=== PATIENT | male | born 1995 | race Caucasian/White ===

== ENCOUNTER 2016-12-01 00:21 | Observation (INO) ==
[2016-12-01] MEDS ORDERED: *HR* LORazepam 2 MG/ML VIAL IM ONE (00:24)
[2016-12-01] MEDS ORDERED: Haloperidol Lactate 5 MG/ML VIAL IM ONE (00:24)
[2016-12-01] MEDS ORDERED: Haloperidol Lactate 5 MG/ML VIAL ONE (00:25)
[2016-12-01] MEDS ORDERED: *HR* LORazepam 2 MG/ML VIAL ONE (00:25)
--- NOTE | 2016-12-01 00:27 | Emergency Department Note ---
Disposition Clinical Impression: Altered mental status, Alcohol intoxication Disposition: Admitted As Inpatient Condition: Fair Time of Disposition: 02:04 General Adult HPI - General Chief complaint: ED Overdose Stated complaint: ETOH Time Seen by Provider: 12/01/16 00:24 Source: EMS, police Mode of arrival: EMS Limitations: altered mental status Nursing Notes Reviewed: Yes Vital Signs Reviewed: Yes - History of Present Illness HPI Narrative: History is extremely limited due the patient's altered mental status. Police report that they were called for a reported seizure at a local bar. Per bystanders, the patient reportedly used heroine and crack cocaine today. The police state that they found the patient banging his head against a wall. They stated that they tried to subdue him, but the patient was extremely combative and they used a taser twice to subdue him. He was brought in by EMS. He was extremely combative and aggressive towards the EMS crew. He does not provide any history. - Related Data Previous Rx's Medication Instructions Recorded Amoxicillin/Clavulanate [Augmentin] 875 mg PO BIDWM #20 tablet 07/30/15 Promethazine/Phenyleph/Codeine 120 ml PO Q6-8H PRN #120 syrup 07/30/15 [Promethazine Vc-Codeine Syrup] Amoxicillin [Amoxil] 500 mg PO TID #30 capsule 09/19/15 Loratadine [Claritin] 10 mg PO DAILY #30 tablet 09/19/15 Allergies Allergy/AdvReac Type Severity Reaction Status Date / Time No Known Allergies Allergy Verified 07/30/15 11:36 Limitations: ROS unobtainable due to patients medical condition Past Medical History - Past Medical History Source: unable to obtain Medical history: Reports: no medical history Surgical history: Reports: no surgical history Psychiatric history: Reports: depression - Social History Smoking Status: Current every day smoker Smokeless Tobacco Status: No Alcohol use: Reports: none Drug use: Reports: marijuana Physical Exam - General Limitations: altered mental status General appearance: appears intoxicated - Head Head exam: atraumatic, normocephalic - Eye Eye exam: Present: normal appearance, other (Dilated, reactive bilaterally without nystagmus.) - ENT ENT exam: normal exam - Neck Neck exam: Present: normal inspection, full ROM, trachea midline. Absent: tenderness - Chest Chest inspection: Present: other (Erythema to the right upper medial chest consistent with taser that was pressed to the chest in that area.) - Respiratory Respiratory exam: Present: normal lung sounds bilaterally. Absent: respiratory distress, stridor - Cardiovascular Cardiovascular exam: Present: normal rhythm, tachycardia - Abdominal Exam Abdominal exam: Present: soft, Non-Tender. Absent: distention, rebound - Extremities Exam Extremities exam: Present: normal inspection, full ROM - Back Exam Back exam: Present: normal inspection, full ROM. Absent: tenderness - Neurological Exam Neurological exam: Present: alert, CN II-XII intact - Psychiatric Psychiatric exam: Present: agitated - Skin Skin exam: Present: warm, dry, intact, normal color Course - Reevaluation(s) Reevaluation #1: Unfortunately, there was no improvement in the patient's agitation after IM Ativan and Haldol. Nursing staff was able to obtain an IV. I gave 50 mg of ketamine IV, after which the patient was somnolent and cooperative. Patient without any diminished respiratory drive or hypoxemia. Respiratory staff available if the patient does not continue to protect his airway. Time: 01:09 Reevaluation #2: No acute findings on CT of his head, C-spine, or chest x-ray other than possible aspiration pneumonitis of the right upper lobe. Patient is still quite somnolent. He is maintaining his airway. He is 99% on nasal cannula oxygen. Time: 02:03 Reevaluation #3: Accepted by Dr. Almanza. Time: 02:24 Vital Signs Temperature 0 F L 12/01/16 00:27 Pulse Rate 150 12/01/16 00:27 Respiratory Rate 20 12/01/16 00:27 Blood Pressure 135/100 12/01/16 00:27 O2 Sat by Pulse Oximetry 97 12/01/16 00:27 Temperature 0 F L 12/01/16 00:27 Pulse Rate 73 12/01/16 02:49 Respiratory Rate 14 12/01/16 02:49 Blood Pressure 93/57 12/01/16 02:49 O2 Sat by Pulse Oximetry 100 12/01/16 02:49 Oxygen Delivery Oxygen Delivery Nasal Cannula Medical Decision Making - Lab Data Result diagrams: 12/01/16 01:23 12/01/16 01:23 Lab Results 12/01/16 12/01/16 12/01/16 Range/Units 00:44 01:23 01:23 WBC 9.5 (4.3-11.1) K/mcL RBC 4.68 (4.19-5.50) M/mcL Hgb 14.2 (12.9-16.9) g/dL Hct 40.9 (37.5-50.1) % MCV 87.4 (83.0-100.0) fL MCH 30.3 (28.0-33.3) pg MCHC 34.7 (31.6-35.5) g/dL RDW 11.3 L (11.5-14.5) % Plt Count 259 (140-400) K/mcL MPV 9.2 L (9.4-12.4) fL Immature Gran % 0.3 (0-4) % Seg Neutrophils % 62.8 % Lymphocytes % 28.6 % Monocytes % 5.5 % Eosinophils % 2.3 % Basophils % 0.5 % Neutrophils # 5.9 (1.6-8.9) K/mcL Lymphocytes # 2.7 (0.6-4.6) K/mcL Monocytes # 0.5 (0.0-1.3) K/mcL Eosinophils # 0.2 (0.0-0.6) K/mcL Basophils # 0.1 (0.0-0.2) K/mcL Sodium 144 (136-145) mEq/L Potassium 3.7 (3.5-4.5) mEq/L Chloride 111 H (98-109) mEq/L Carbon Dioxide 22 (19-29) mEq/L BUN 4 L (8-26) mg/dL Creatinine 0.66 L (0.72-1.25) mg/dL Est GFR ( Amer) > 60 (> 60) Est GFR (Non-Af Amer) > 60 (> 60) BUN/Creatinine Ratio 6 (6-26) Glucose 114 H (70-99) mg/dL Calculated Osmolality 296 (280-300) Calcium 8.2 L (8.6-10.8) mg/dL Salicylates < 5.0 L (15-30) mg/dL Urine Opiates Screen Negative (Gonpls=157) ng/mL Acetaminophen < 1.0 L (10-30) mcg/mL Ur Barbiturates Screen Negative (Xebgyo=157) ng/mL Ur Phencyclidine Scrn Negative (Cutoff=25) ng/mL Ur Amphetamines Screen Negative (Sjfmif=3225) ng/mL U Benzodiazepines Scrn Negative (Zwbznq=499) ng/mL Urine Cocaine Screen Negative (Cutoff= 300) ng/mL U Marijuana (THC) Screen Negative (Cutoff = 50) ng/mL Ethyl Alcohol 290 H (0-10) mg/dL - EKG Data EKG #1 EKG attestation: Yes I reviewed and interpreted this EKG. EKG results narrative: Normal sinus rhythm at 95 with normal axis and intervals. No ST elevation or depression. No pathologic Q waves. No EKG available. This is a normal EKG. Critical Care Time Critical Care Time: Yes Total Critical Care Time: 40 Attestation: Critical care performed: Time is exclusive of separately billable procedures. Time includes: direct patient care, patient reassessment, coordination of patient care, interpretation of data (laboratory data, radiology data, and respiratory data), review of patient's medical records, medical consultation and documentation of patient care. Procedures included in critical care time: Procedures excluded from critical care time: Attestation Statement - Attestation Attestation: I, Orlando Giron MD, personally performed a history and physical exam of the patient and discussed their management with the resident. I reviewed the resident's note and agree with the documented findings, medical decision making , and plan of care. 21-year-old male brought to the emergency department by EMS for altered mental status. Patient was apparently are EMS report when they arrived he was outside and being held down and was banging his head on the concrete. Patient extremely confused and combative. He is yelling and uncooperative. Unable to obtain any history from patient. Patient had to be restrained and sedated. On examination patient is a well-developed well-nourished male in no acute distress. No obvious signs of trauma. Patient appears intoxicated. No scalp hematomas noted. Full range of motion of neck. No palpable bony step-off. Breath sounds equal bilaterally. Heart regular and tachycardic. Abdomen soft with normal bowel sounds. CT of the head and cervical spine was negative other than some right upper lobe infiltrate consistent with aspiration. Labs reviewed. The hospitalist, Dr. Almanza, was consulted and accepted the admission of the patient.
[2016-12-01] MEDS ORDERED: Ketamine *HR* 500 MG/10 ML MDV IV ONE (00:37)
[2016-12-01] MEDS ORDERED: 0.9 % Sodium Chloride 1,000 ML ONE (00:46)
[2016-12-01 01:18] LABS: Amphetamine Screen,Urine Negative ng/mL (Cutoff=1000); Barbiturate Screen,Urine Negative ng/mL (Cutoff=200); Benzodiazepines Screen,Urine Negative ng/mL (Cutoff=200); Cannabinoid Screen,Urine Negative ng/mL (Cutoff = 50); Cocaine Screen,Urine Negative ng/mL (Cutoff= 300); Opiate Screen,Urine Negative ng/mL (Cutoff=300); Phencyclidine Screen,Urine Negative ng/mL (Cutoff=25)
[2016-12-01 01:31] LABS: Basophils # 0.1 K/mcL (0.0-0.2); Basophils % 0.5 %; Eosinophils # 0.2 K/mcL (0.0-0.6); Eosinophils % 2.3 %; Hematocrit 40.9 % (37.5-50.1); Hemoglobin 14.2 g/dL (12.9-16.9); Immature Granulocytes % 0.3 % (0-4); Lymphocytes # 2.7 K/mcL (0.6-4.6); Lymphocytes % 28.6 %; Mean Corpuscular HGB Conc 34.7 g/dL (31.6-35.5); Mean Corpuscular Hemoglobin 30.3 pg (28.0-33.3); Mean Corpuscular Volume 87.4 fL (83.0-100.0); Mean Platelet Volume 9.2 fL (9.4-12.4); Monocytes # 0.5 K/mcL (0.0-1.3); Monocytes % 5.5 %; Neutrophils # 5.9 K/mcL (1.6-8.9); Platelet Count 259 K/mcL (140-400); Red Blood Count 4.68 M/mcL (4.19-5.50); Red Cell Distribution Width 11.3 % (11.5-14.5); Segmented Neutrophils % 62.8 %
[2016-12-01 01:45] LABS: BUN/Creatinine Ratio 6 (6-26); Calcium 8.2 mg/dL (8.6-10.8); Carbon Dioxide 22 mEq/L (19-29); Chloride 111 mEq/L (98-109); Ethanol 290 mg/dL (0-10); Glucose 114 mg/dL (70-99); Osmolality,Calculated 296 (280-300); Potassium 3.7 mEq/L (3.5-4.5); Sodium 144 mEq/L (136-145); eGFR For African Americans > 60 (> 60); eGFR For Non-African Americans > 60 (> 60)
[2016-12-01 01:50] LABS: Acetaminophen < 1.0 mcg/mL (10-30); Blood Urea Nitrogen 4 mg/dL (8-26); Salicylate < 5.0 mg/dL (15-30)
[2016-12-01] MEDS ORDERED: 0.9 % Sodium Chloride 1,000 ML IV ONE (01:50)
[2016-12-01] MEDS ORDERED: D5% in 0.45% NACL w KCl 20 MEQ/1,000 ML MLS IVC SCH (02:30)
[2016-12-01] MEDS ORDERED: Ondansetron 4 MG/2 ML VIAL IVP PRN ×2 (03:51→15:45)
[2016-12-01] MEDS ORDERED: Naloxone 0.4 MG/ML INJ IVP PRN ×2 (03:51→15:45)
[2016-12-01] MEDS ORDERED: Acetaminophen 325 MG TABLET PO PRN ×2 (03:51→15:45)
[2016-12-01] MEDS ORDERED: Acetaminophen 650 MG RECTAL SUPP RC PRN ×2 (03:51→15:45)
[2016-12-01] MEDS ORDERED: Haloperidol Lactate 5 MG/ML VIAL IVP PRN (04:05)
[2016-12-01] MEDS ORDERED: *HR* Promethazine 25 MG/ML VIAL IVP PRN ×2 (04:05→15:45)
[2016-12-01] MEDS ORDERED: *HR* LORazepam 2 MG/ML VIAL IVP PRN ×6 (04:05→15:45)
--- NOTE | 2016-12-01 04:20 | Internal Med History&Physical ---
Date of Encounter: 12/01/16 Time of Encounter: 03:00 Assessment and Plan (1) Toxic metabolic encephalopathy Status: Acute . (2) Delirium due to conditions classified elsewhere Status: Acute . (3) Combative behavior Status: Acute . (4) Agitation requiring sedation protocol Status: Acute . (5) Polysubstance dependence including opioid type drug, episodic abuse Status: Chronic . (6) Alcohol intoxication Status: Acute . Qualifiers: Complication of substance-induced condition: with delirium Qualified Code(s ): F10.121 - Alcohol abuse with intoxication delirium (7) Altered mental status Status: Acute . Qualifiers: Altered mental status type: delirium Qualified Code(s): R41.0 - Disorientation, unspecified (8) Pneumonia Status: Ruled-out . Qualifiers: Pneumonia type: aspiration pneumonia Aspiration pneumonia type: unspecified Laterality: right Lung location: upper lobe of lung Qualified Code(s): J69.0 - Pneumonitis due to inhalation of food and vomit Internal Medicine - H&P: HPI Chief complaint: Altered mental status Admitted From: Emergency Dept Plans for Post Hospital Care: Home History of present illness: Mr. Pina is a 21 year old male history significant for polysubstance abuse , alcohol dependency/ abuse, nicotine dependency The patient was visited and interviewed and examined. Patient was admitted to [facility] in the emergency department when he was escorted by police via EMS services from a local bar where he was witnessed to suffer a seizure-like event. Bystanders reported to have the patient had been using heroin and crack cocaine during the day. The police found the patient taking his head against a concrete wall. Attempts to subdue the patient were unsuccessful. He became more combative. As a consequence placemen tasered him twice. He has had brought in to the ED by EMS services. He continues to be combative and aggressive toward the EMS crew in route. IM Ativan and Haldol were administered in the ED without effect. He was given intravenous ketamine at which point he became somnolent and cooperative. Findings in The ED: Afebrile pulse 73-150 respiration 14-20 BP 93-135/57-100. O2 saturation 97-100% 2 L per nasal cannula. Urine drug screen returned negative. Ethyl alcohol 290. Salicylate less than 5 acetaminophen list 1. Metabolic panel noted chloride 111. BUN 4 creatinine 0.66. Glucose 114 osmolality 296. WBC 9.5 hemoglobin 14.2 platelets 259,000. RDW 11.3. MPV 9.2. Differential normal. EKG normal sinus rhythm. Rate 95 bpm. No acute ischemic changes. CT cervical spine without contrast demonstrated no evidence of acute fracture or malalignment. Incidental glass opacities in the right upper lobe concerning for pneumonia/aspiration noted incidentally. Portable chest x-ray demonstrated no acute cardiopulmonary process. CT of the head demonstrated no acute intracranial abnormality mass effect midline shift or fluid collection. No evidence of acute infarct or hydrocephalus. No evidence of fracture or soft tissue derangement. Mild mucosal thickening of the ethmoid sinus and opacification of the left frontal sinus noted. Preliminary impressions suggest acute toxic metabolic encephalopathy with delirium secondary to polysubstance abuse with intoxication. Witnessed crack cocaine and heroin usage concurrent with acute alcohol intoxication. Witnessed acute seizure event also per bystanders. Screening laboratory otherwise benign. CT of the cervical spine Showed incidental evidence for right upper lobe aspiration pneumonitis. CT of the head captures evidence for ethmoid and frontal sinusitis. Patient presents risk for further acute clinical decline and morbidity given his presenting chief complaint, findings and comorbid conditions. Workup and treatment will proceed comprehensively. Cumulative laboratory and radiographic data base was reviewed, considered and discussed. Pertinent ancillary medical records including ECW and PCI documentation was reviewed and considered. Given the patient's presenting concerns, past medical history, clinical findings and symptoms, he is admitted at this time will undergo further evaluation and disposition. Orders were written as per the computerized physician orderlies teacher system.......................................................................... .................... Consultative opinions will be sought as clinical circumstances justify. account services analyst/case management consultation. Pain management needs will be addressed. Laboratory and radiographic data base will be updated as appropriate. Studies include: Cultures blood urine and sputum, CPK, LDH, prolactin, PT?INR, APTT, Ddimer, UA, UDS,ETOH, ASA, APAP, cardiac injury panel, BNP, metabolic and hematologic panel, magnesium, phosphorus, ionized calcium, thyroid panel, lipid profile, A1c, C-pep, CRP sed rate, serum drug screen, blood gas, amylase, lipase , lactic acid, serologies, etc. Precautions: Aspiration, fall, seizure, delirium protocol/surveillance initiated. Acute alcohol withdrawal/detoxification protocols/surveillance initiated. CIWA/ SAS guidelines. Vitamin therapy supplements thiamine, B12, folic acid, MVI+ iron. RALLY PACK/banana bag +VITs and mag sulfate. Telemetry with continuous hemodynamic monitoring and pulse oximetry initiated. Empiric antibiotic coverage: Intravenous Zosyn and Levaquin pending culture data. Special studies: CT chest/cervical spine/head, chest x-ray, telemetry, EKG, EEG , MRI brain. Pulmonary toilet: Incentive spirometry, aerosol bronchodilator, mucolytic, antitussive, supplemental oxygen. Corticosteroid therapyPRN. CPAP/BiPAP supplemental oxygen deliveryPRN. Aerosol Mucomyst therapyPRN. Fluid and electrolyte repletion efforts will proceed. Careful attention to fluid balance and renal recovery will be emphasized. Avoidance of nephrotoxic exposure and adverse drug drug interaction in the setting of impaired renal function will be monitored closely. Acute coronary syndrome protocol/surveillance initiated. DVT and PUD prophylaxis initiated: PPI therapy, intermittent pneumatic cuffs/ TEDs. Subcutaneous heparin/Lovenox. Early ambulation will be encouraged. Immunization updates recommended. Influenza and pneumococcal vaccinations as part of ongoing preventative healthcare recommendations strongly recommended. Smoking cessation counseling briefly addressed. Patient provided nicotine substitution during this hospitalization. Advanced care directive discussion briefly addressed. Patient does not declare any healthcare restrictions at this time. Cardiovascular risk appraisal and cardiovascular risk reduction efforts will be emphasized. Physical and occupational therapy may be consulted to evaluate/assess patient's functional capacity and progress mobility as circumstances permit. Nutrition/dietary education counseling may be considered as circumstances justify. Outpatient medication schedules will be reviewed, confirmed and facilitated as appropriate. Reconciliation of home treatments including adjustments, substitutions and reintroduction into the treatment regimen will address necessary maintenance therapies for chronic pre-existing medical conditions. Plan of care has been reviewed and discussed in detail with the patient. Questions addressed. Hospital course dictated by clinical findings, treatment response and potential consultative interventions. Patient is at risk for further acute clinical decline and morbidity due to presenting chief complaints, findings and comorbid conditions. Condition is serious. Prognosis is guarded. CODE STATUS is full. Past Med Surg Social Fam HX - Past Medical History Source: old records reviewed Medical history: non-contributory Psychiatric history: anxiety, depression, other - Past Surgical History Surgical History: non-contributory - Social History Smoking Status: Current every day smoker Smokeless Tobacco Status: No Alcohol use: occasionally, heavy Drug use: cocaine, opiates, marijuana, other (heroin) Occupational status: unemployed Current living situation: Home - Independent Activity Level: Independent ambulation, Mostly sedentary Recent Out of Country Travel Within the Last 8 Weeks: No Exposure or Possible Exposure to Illness During Travel: No Internal Medicine - H&P: Meds No Known Home Drugs 12/01/16 [History] Allergies No Known Allergies Allergy (Verified 07/30/15 11:36) ROS unobtainable: due to mental status All Systems PM: A 10-system review of systems was performed and is negative for pertinent findings except as documented above in the HPI. Patient presents encephalopathic. Delirious. Agitated and combative. A non-historian of current circumstances and the events. Details are collected from cumulative records, EMS and police triage and attending staff. - Constitutional Constitutional: as per HPI - EENT Eyes: as per HPI Ears: as per HPI Nose, mouth and throat: as per HPI - Cardiovascular Cardiovascular ROS IM: as per HPI - Respiratory Respiratory: as per HPI - Gastrointestinal Gastrointestinal: as per HPI - Genitourinary Genitourinary ROS male: as per HPI - Musculoskeletal Musculoskeletal ROS IM: as per HPI - Integumentary Integumentary IM: as per HPI - Neurological Neurological ROS: as per HPI - Psychiatric Psychiatric: as per HPI - Endocrine Endocrine IM: as per HPI - Hematologic/Lymphatic Hematologic/Lymphatic: as per HPI - Allergic/Immunologic Allergic/Immunologic: as per HPI - Constitutional Vitals: Temp Pulse Resp BP Pulse Ox 96.3 F L 90 16 109/52 100 12/01/16 03:25 12/01/16 04:00 12/01/16 04:00 12/01/16 04:00 12/01/16 04:00 General appearance: Present: A&O X 1, disheveled, mild distress. Absent: cooperative, answers questions appropriately - Head Head exam: Present: atraumatic, normocephalic - Eye Eye exam: Present: EOMI, PERRL, conjuntiva pink, sclera anicteric Pupils: Present: fixed, miosis, PERRL - ENT ENT exam: Present: mucous membranes moist, normal oropharynx - Neck Neck exam general surgery: Present: full ROM, supple, trachea midline. Absent: lymphadenopathy, tenderness, nuchal rigidity - Respiratory Respiratory exam: Present: decreased breath sounds, CTAB. Absent: accessory muscle use, rales, rhonchi, wheezes - Cardiovascular Cardiovascular exam: Present: distant heart sounds, RRR, +S1, +S2. Absent: diastolic murmur, gallop, rubs, systolic murmur - GI/Abdominal GI/Abdominal exam: Present: normal bowel sounds, soft, no peritoneal signs. Absent: distended, tenderness - Extremities Exam Extremities exam: Present: full ROM, warm, radial pulses palpable and symetrical. Absent: calf tenderness, cyanotic, pedal edema - Neurological Exam Neurological exam: Present: alert, altered, CN II-XII intact, no focal deficits. Absent: oriented X3, pronater drift, facial droop, speech deficit - Expanded Neurological Exam Neurological exam expanded: Present: ataxia, inattentive, protecting the airway. Absent: expressive aphasia, receptive aphasia Patient oriented to: Present: person. Absent: place, time Coma Scale Eye Opening: To Pain Coma Scale Motor Response: Withdraws to Pain Coma Scale Verbal Response: Confused Coma Scale Total: 10 - Psychiatric Psychiatric exam: Present: flat affect - Skin Skin exam: Present: dry, intact Internal Med - H&P Results - Labs CBC & Chem 7: 12/01/16 01:23 12/01/16 01:23 - Impressions Vital Signs Temp Pulse Resp BP Pulse Ox 12/01/16 04:00 90 16 109/52 100 12/01/16 03:57 100 12/01/16 03:49 88 12/01/16 03:25 96.3 F L 65 16 89/56 100 12/01/16 03:01 17 110/67 12/01/16 02:49 73 14 93/57 100 12/01/16 02:30 74 15 101/55 100 12/01/16 02:22 75 13 102/57 100 12/01/16 02:05 95 17 100 12/01/16 02:00 77 99/56 12/01/16 01:30 95 106/63 12/01/16 01:12 80 112/68 12/01/16 00:27 0 F L 150 20 135/100 97 Intake and Output 02/04/17 02/04/17 02/05/17 15:59 23:59 07:59 Intake Total 1000 / 1000 Balance 1000 / 1000 Intake: IV Fluids 1000 / 1000 0.9 % Sodium Chloride 1, 1000 / 1000 000 ML As .ROUTE .[employer] [facility] Rx#:[id number] Oral 0 / 0 Other: Weight 79.379 kg Blood Glucose* 112 Patient Weight 12/01/16 23:59 Weight 79.379 kg Short CBC 12/01/16 Range/Units 01:23 WBC 9.5 (4.3-11.1) K/mcL Hgb 14.2 (12.9-16.9) g/dL Hct 40.9 (37.5-50.1) % Plt Count 259 (140-400) K/mcL Neutrophils # 5.9 (1.6-8.9) K/mcL BMP 12/01/16 Range/Units 01:23 Sodium 144 (136-145) mEq/L Potassium 3.7 (3.5-4.5) mEq/L Chloride 111 H (98-109) mEq/L Carbon Dioxide 22 (19-29) mEq/L BUN 4 L (8-26) mg/dL Creatinine 0.66 L (0.72-1.25) mg/dL Glucose 114 H (70-99) mg/dL Calcium 8.2 L (8.6-10.8) mg/dL Abnormal lab results RDW 11.3 % (11.5-14.5) L 12/01/16 01:23 MPV 9.2 fL (9.4-12.4) L 12/01/16 01:23 Chloride 111 mEq/L (98-109) H 12/01/16 01:23 BUN 4 mg/dL (8-26) L 12/01/16 01:23 Creatinine 0.66 mg/dL (0.72-1.25) L 12/01/16 01:23 Glucose 114 mg/dL (70-99) H 12/01/16 01:23 Calcium 8.2 mg/dL (8.6-10.8) L 12/01/16 01:23 Salicylates < 5.0 mg/dL (15-30) L 12/01/16 01:23 Acetaminophen < 1.0 mcg/mL (10-30) L 12/01/16 01:23 Ethyl Alcohol 290 mg/dL (0-10) H 12/01/16 01:23 Allergies Allergy/AdvReac Type Severity Reaction Status Date / Time No Known Allergies Allergy Verified 07/30/15 11:36 Laboratory Results WBC 9.5 K/mcL (4.3-11.1) 12/01/16 01:23 RBC 4.68 M/mcL (4.19-5.50) 12/01/16 01:23 Hgb 14.2 g/dL (12.9-16.9) 12/01/16 01:23 Hct 40.9 % (37.5-50.1) 12/01/16 01:23 MCV 87.4 fL (83.0-100.0) 12/01/16 01:23 MCH 30.3 pg (28.0-33.3) 12/01/16 01:23 MCHC 34.7 g/dL (31.6-35.5) 12/01/16 01:23 RDW 11.3 % (11.5-14.5) L 12/01/16 01:23 Plt Count 259 K/mcL (140-400) 12/01/16 01:23 MPV 9.2 fL (9.4-12.4) L 12/01/16 01:23 Immature Gran % 0.3 % (0-4) 12/01/16 01:23 Seg Neutrophils % 62.8 % 12/01/16 01:23 Lymphocytes % 28.6 % 12/01/16 01:23 Monocytes % 5.5 % 12/01/16 01:23 Eosinophils % 2.3 % 12/01/16 01:23 Basophils % 0.5 % 12/01/16 01:23 Neutrophils # 5.9 K/mcL (1.6-8.9) 12/01/16 01:23 Lymphocytes # 2.7 K/mcL (0.6-4.6) 12/01/16 01:23 Monocytes # 0.5 K/mcL (0.0-1.3) 12/01/16 01:23 Eosinophils # 0.2 K/mcL (0.0-0.6) 12/01/16 01:23 Basophils # 0.1 K/mcL (0.0-0.2) 12/01/16 01:23 Sodium 144 mEq/L (136-145) 12/01/16 01:23 Potassium 3.7 mEq/L (3.5-4.5) 12/01/16 01:23 Chloride 111 mEq/L (98-109) H 12/01/16 01:23 Carbon Dioxide 22 mEq/L (19-29) 12/01/16 01:23 BUN 4 mg/dL (8-26) L 12/01/16 01:23 Creatinine 0.66 mg/dL (0.72-1.25) L 12/01/16 01:23 Est GFR ( Amer) > 60 (> 60) 12/01/16 01:23 Est GFR (Non-Af Amer) > 60 (> 60) 12/01/16 01:23 BUN/Creatinine Ratio 6 (6-26) 12/01/16 01:23 Glucose 114 mg/dL (70-99) H 12/01/16 01:23 Calculated Osmolality 296 (280-300) 12/01/16 01:23 Calcium 8.2 mg/dL (8.6-10.8) L 12/01/16 01:23 Salicylates < 5.0 mg/dL (15-30) L 12/01/16 01:23 Urine Opiates Screen Negative ng/mL (Rhgdco=754) 12/01/16 00:44 Acetaminophen < 1.0 mcg/mL (10-30) L 12/01/16 01:23 Ur Barbiturates Screen Negative ng/mL (Pqlfta=216) 12/01/16 00:44 Ur Phencyclidine Scrn Negative ng/mL (Cutoff=25) 12/01/16 00:44 Ur Amphetamines Screen Negative ng/mL (Vgiafw=9245) 12/01/16 00:44 U Benzodiazepines Scrn Negative ng/mL (Idhzmz=721) 12/01/16 00:44 Urine Cocaine Screen Negative ng/mL (Cutoff= 300) 12/01/16 00:44 U Marijuana (THC) Screen Negative ng/mL (Cutoff = 50) 12/01/16 00:44 Ethyl Alcohol 290 mg/dL (0-10) H 12/01/16 01:[address] 12/01/16 00:39 IMPRESSION: Negative CT cervical spine. Multiple ground-glass opacities right upper lobe concerning for pneumonia/ aspiration. D/ / Madonna Larry MD / Madonna Larry MD Interpreting Provider: Madonna Larry MD Chest X-Ray 12/01/16 00:39 IMPRESSION: Negative portable chest. D/ / Carson Cardoza MD / Carson Cardoza MD Interpreting Provider: Carson Cardoza MD Head CT 12/01/16 00:39 IMPRESSION: No acute intracranial abnormality. D/ / Geogri Downs MD / Georgi Downs MD Interpreting Provider: Georgi Downs MD
[2016-12-01 04:34] LABS: Prothrombin Time 11.1 Seconds (9.4-12.1)
[2016-12-01 04:42] LABS: Alanine Aminotransferase 25 Units/L (0-55); Albumin 3.6 g/dL (3.5-5.0); Albumin/Globulin Ratio 1.2 (1.1-2.2); Alkaline Phosphatase 73 Units/L (38-126); Amylase 60 Units/L (25-125); Aspartate Amino Transferase 23 Units/L (5-34); Bilirubin,Direct 0.1 mg/dL (0.0-0.5); Bilirubin,Indirect 0.2 mg/dL (0.0-1.2); Bilirubin,Total 0.3 mg/dL (0.2-1.2); Creatine Kinase 162 Units/L (30-200); Globulin 2.9 g/dL (2.4-3.5); Lactate Dehydrogenase 213 Units/L (159-327); Lipase 18 Units/L (8-78); Magnesium 2.1 mg/dL (1.6-2.6); Total Protein 6.5 g/dL (6.0-8.3)
[2016-12-01] MEDS ORDERED: Calcium Gluconate 1,000 MG in D5% in Water 100 ML IVPB ONE (05:14)
[2016-12-01] MEDS: 0.9 % Sodium Chloride 1,000 ML IVC SCH ×2 (05:51→20:18)
[2016-12-01] MEDS ORDERED: Nystatin SUSP 5 ML UD.LIQ PO SCH (09:00)
[2016-12-01] MEDS ORDERED: Pantoprazole 40 MG VIAL IVPB SCH (09:00)
[2016-12-01] MEDS ORDERED: Vitamin B Complex/Vit C/Vit E 1 EACH TABLET PO SCH (09:00)
[2016-12-01] MEDS ORDERED: Thiamine (B-1) 100 MG TABLET PO SCH (09:00)
[2016-12-01] MEDS ORDERED: Folic Acid 1 MG TABLET PO SCH (09:00)
[2016-12-01] MEDS ORDERED: Thiamine (B-1) 100 MG, Folic Acid 1 MG, MVI, adult with vitamin K 10 ML in 0.9 % Sodi... IV SCH (09:00)
--- NOTE | 2016-12-01 15:07 | Event Note ---
Date of Encounter: 12/01/16 Time of Encounter: 15:06 Patient is still drowsy but waking up and taking medications. Clinically getting better. No signs of withdrawal at this time. Continue to monitor for today. May transfer patient to [facility] floor.
--- NOTE | 2016-12-01 20:32 | Electrocardiograph Report ---
[place] [id number] Test Date: 2016-12-01 Pat Name: Sherif Pina Department: 105 Room: 3A Gender: M [employer] Tender: : 1995 Requested By: Chauncey Hernandez Order Number: [id number] Reading MD: Rosalio Gurrola DO Measurements Intervals [place] Rate: 95 P: 49 HI: 144 QRS: 61 QRSD: 96 T: 44 QT: 368 QTc: 421 Interpretive Statements SINUS RHYTHM Electronically Signed On 12-01-2016 20:31:29 EST by Rosalio Gurrola DO
[2016-12-02] MEDS ORDERED: Vitamin B Complex/Vit C/Vit E 1 EACH TABLET PO SCH (09:00)
[2016-12-02] MEDS ORDERED: Thiamine (B-1) 100 MG TABLET PO SCH (09:00)
[2016-12-02] MEDS ORDERED: Folic Acid 1 MG TABLET PO SCH (09:00)
--- NOTE | 2016-12-02 09:37 | Discharge Summary ---
Date of Encounter: 12/02/16 Time of Encounter: 08:50 - Discharge Diagnosis (1) Toxic metabolic encephalopathy Priority: Primary Status: Acute Comments: From alcohol abuse and intoxication (2) Alcohol intoxication Priority: Secondary Status: Acute Qualifiers: Complication of substance-induced condition: with delirium Qualified Code(s ): F10.121 - Alcohol abuse with intoxication delirium (3) Combative behavior Priority: Secondary Status: Acute (4) Delirium due to conditions classified elsewhere Priority: Secondary Status: Acute (5) Pneumonia Priority: Secondary Status: Ruled-out Qualifiers: Pneumonia type: aspiration pneumonia Aspiration pneumonia type: unspecified Laterality: right Lung location: upper lobe of lung Qualified Code(s): J69.0 - Pneumonitis due to inhalation of food and vomit - Discharge Medications Home Medications: No Known Home Drugs 12/01/16 [History] Allergies/Adverse Reactions: Allergies No Known Allergies Allergy (Verified 07/30/15 11:36) Date of admission: 12/01/16 02:45 Primary care physician: PCP NO Consults: 12/01/16 04:06 Consult to [facility] [CONS] Routine Reason for SW Consult: DC planning Discharging clinician: Johanne Aly Anticipated date of discharge: 12/02/16 - Patient Status Disposition: Home, Self-Care Condition: Good Functional capacity at discharge: independent ambulation Overall status at discharge: patient is back to baseline - Discharge Instructions Follow Up With: NO,PCP [Primary Care Provider] - (Follow-up with PCP in one week) - Diet and Activity Activity: resume usual activities as tolerated Diet: advance to your usual diet Hospital course: Mr. Pina is a 21 year old male with no significant past medical history who presented to the ER after being intoxicated and running into trouble with law enforcement. He was found to be delirious and was diagnosed with toxic metabolic encephalopathy. He was observed in the ICU after he was found to be intoxicated with alcohol with suspicion of drug abuse. His urine drug screen was negative for any drugs but he did have a alcohol level of 290. He received IV fluids and treatment for alcohol intoxication. This morning his feeling much better and is now stable to be discharged home. On initial presentation there was suspicion of aspiration pneumonia but chest x-ray did not reveal any pneumonia. Patient did not have any clinical signs of aspiration pneumonitis. He will be discharged today. - Time Spent with Patient Total time spent providing and/or coordinating discharge services: Less than 30 minutes (20 min) - Constitutional Vitals: Temp Pulse Resp BP Pulse Ox 98.0 F 67 16 113/70 98 12/02/16 06:48 12/02/16 06:48 12/02/16 06:48 12/02/16 06:48 12/02/16 06:48 General appearance: Present: cooperative, A&O X 3, pleasant, no acute distress, answers questions appropriately - Respiratory Respiratory exam: Present: CTAB. Absent: accessory muscle use, rales, rhonchi, wheezes - Cardiovascular Cardiovascular exam: Present: RRR, +S1, +S2. Absent: diastolic murmur, gallop, rubs, systolic murmur - GI/Abdominal GI/Abdominal exam: Present: normal bowel sounds, soft, no peritoneal signs. Absent: distended, tenderness - Extremities Exam Extremities exam: Present: warm, radial pulses palpable and symetrical. Absent : calf tenderness, cyanotic, pedal edema - VTE Documentation of Mechanical Device: Intermittent pneumatic compression device - Attending Attestation This document has been at least partially created by [employer] recognition technology by Dr. Aly. Errors in grammar, wording or other phrases may exist. If errors are found after the documentation is signed, they will be addressed individually in the addendum section of this document when appropriate.
[2016-12-02 10:49] VITALS: BP 142/83
[2016-12-03 20:58] LABS: Amphetamines NEGATIVE ng/mL (Cutoff 30); Barbiturates NEGATIVE ng/mL (Cutoff 75); Benzodiazepines NEGATIVE ng/mL (Cutoff 75); Cocaine NEGATIVE ng/mL (Cutoff 30); Methadone NEGATIVE ng/mL (Cutoff 40); Methamphetamines NEGATIVE ng/mL (Cutoff 30); Opiates NEGATIVE ng/mL (Cutoff 30); Phencyclidine NEGATIVE ng/mL (Cutoff 15)
[2016-12-11 08:41] LABS: Phencyclidine Confirmation <10 ng/mL
== END 2016-12-02 12:30 | disposition home or self-care (01) ==
LOC: ICNU 00:21 → EMEROO 00:21 → SUATTDRO 02:45 → ICNU 03:05 → 3ANU 16:24
PROVIDERS: ADMIT Pediatrics; ATTEND Internal Medicine